=== PATIENT | female | born 1985 | race American Indian/Alaskan Native ===

== ENCOUNTER 2023-11-28 21:09 | Emergency (ER) | payer SELFPAY ==
[2023-11-28] MEDS ORDERED: Ondansetron 4 MG Tab.DIS PO ONE (21:10)
[2023-11-28] MEDS ORDERED: Sodium Chloride 0.9% 10 ML Syringe FLUSH PRN (21:55)
[2023-11-28 22:06] LABS: BASOPHILS ABSOLUTE AUTO 0.1 x10-3/uL (0.0-0.1); BASOPHILS PERCENT AUTO 1.2 % (0.2-1.5); BLOOD UREA NITROGEN,BUN 10 mg/dL (7-18); BUN/CREATININE RATIO 14.3 (9-20); CALCIUM 7.7 mg/dL (8.6-10.2); CARBON DIOXIDE,CO2 26 mmol/L (21-32); CHLORIDE,CL 104 mmol/L (100-110); CREATININE 0.7 mg/dL (0.55-1.02); EOSINOPHILS PERCENT AUTO 0.4 % (0.6-8.1); ESTIMATED GFR 115 mL/min (>60); GLUCOSE RANDOM 120 mg/dL (80-116); HEMOGLOBIN 12.4 g/dL (11.4-15.5); LYMPHOCYTES ABSOLUTE AUTO 2.4 x10-3/uL (1.0-4.4); LYMPHOCYTES PERCENT AUTO 35.3 % (18.4-52.1); MEAN CORPUSCULAR HEMOGLOBIN 28.9 pg (23.9-33.9); MEAN CORPUSCULAR HGB CONC 32.7 g/dL (31.9-34.8); MEAN CORPUSCULAR VOLUME 88.6 fL (76.7-100.5); MEAN PLATELET VOLUME 9.1 fL (7.1-12.4); MONOCYTES ABSOLUTE AUTO 0.4 x10-3/uL (0.3-1.0); MONOCYTES PERCENT AUTO 5.4 % (4.4-15.7); NEUTROPHILS PERCENT AUTO 57.7 % (30.8-76.2); PLATELET COUNT,PLT 331 x10(3)uL (151-488); POTASSIUM,K 3.7 mmol/L (3.5-5.3); RED BLOOD CELL COUNT 4.29 x10(6)uL (3.60-5.20); RED CELL DISTRIBUTION WIDTH 16.3 % (12.3-16.5); SODIUM,NA 142 mmol/L (135-145); WHITE BLOOD CELL COUNT,WBC 6.9 x10-3/uL (3.0-10.3)
[2023-11-28 22:12] LABS: A/G RATIO 0.8; ALANINE AMINOTRANSFERASE,ALT 23 U/L (12-36); ALBUMIN 3.6 g/dL (3.5-5.2); ALKALINE PHOSPHATASE 90 IU/L (56-112); ASPARTATE AMNIOTRANSFERASE,AST 38 IU/L (5-25); BILIRUBIN TOTAL 0.5 mg/dL (0.1-1.3); MAGNESIUM 1.5 mg/dL (1.8-2.5); PROTEIN TOTAL,TP 8.3 g/dL (6.0-8.0)
[2023-11-28] MEDS: Ondansetron 4 MG/2 ML SDV IVPUSH ONE (22:12)
[2023-11-28] MEDS: Sodium Chloride 0.9% 500 ML IV ONE (22:12)
[2023-11-28 22:13] LABS: INR 1.04 (1.00-1.24); PROTHROMBIN TIME 10.8 sec (9.0-11.1)
[2023-11-28 22:15] LABS: PTT,PARTIAL THROMBOPLSTIN TIME 24.6 SECONDS (24.4-33.2)
[2023-11-28 22:17] LABS: LIPASE 14 U/L (16-77)
[2023-11-28] MEDS: Pantoprazole 40 MG Vial IVPUSH ONE (22:18)
[2023-11-28 22:22] LABS: TROPONIN I < 4.0 pg/mL (4.0-60.3)
[2023-11-28] MEDS: Haloperidol Lactate 5 MG/ML SDV IV ONE (23:40)
[2023-11-29] MEDS: Magnesium Sulfate/Water 2 GM in Premix Bag 1 BAG IV ONE (02:15)
[2023-11-29 02:23] LABS: BILIRUBIN,URINE NEGATIVE (NEGATIVE); GLUCOSE,URINE NORMAL (NORMAL); KETONES,URINE 15 mg/dL (NEGATIVE); LEUKOCYTE ESTERASE,URINE NEGATIVE (NEGATIVE); NITRITE,URINE NEGATIVE (NEGATIVE); OCCULT BLOOD,URINE LARGE (NEGATIVE); PROTEIN,URINE TRACE mg/dL (NEGATIVE); UROBILINOGEN,URINE NORMAL (NEGATIVE)
[2023-11-29 02:24] LABS: AMPHETAMINES SCREEN, URINE NEGATIVE (NEGATIVE); BARBITURATE SCREEN,URINE NEGATIVE (NEGATIVE); BENZODIAZEPINES SCREEN,URINE NEGATIVE (NEGATIVE); BUPRENORPHINE SCREEN,URINE NEGATIVE (NEGATIVE); METHADONE SCREEN, URINE NEGATIVE (NEGATIVE); METHAMPHETAMINE SCREEN, URINE NEGATIVE (NEGATIVE); OXYCODONE SCREEN,URINE NEGATIVE (NEGATIVE); THC SCREEN,URINE POSITIVE (NEGATIVE)
[2023-11-29 02:25] LABS: APPEARANCE,URINE SLIGHTLY CLOUDY (CLEAR); BACTERIA,URINE MODERATE (NS); COLOR,URINE YELLOW (YELLOW); MUCUS,URINE MODERATE (NS); SQUAMOUS EPITHELIAL CELLS,UR FEW (NS,R,O); WBC,URINE 0-5 (0-5)
== END 2023-11-29 04:35 | disposition home or self-care (01) ==
LOC: FB.ED 21:09
DX: E86.0 Dehydration (principal); F10.120 Alcohol abuse with intoxication, uncomplicated; F12.10 Cannabis abuse, uncomplicated; E83.42 Hypomagnesemia; F17.200 Nicotine dependence, unspecified, uncomplicated; Z90.49 Acquired absence of other specified parts of digestive tract; Y90.9 Presence of alcohol in blood, level not specified
CPT/HCPCS: 36415; 80053; 80307; 81001; 82271; 83690; 83735; 84484; 85025; 85610; 85730; 93005; 96361; 96365; 96366; 96375; 99284; C9113; J1630; J2405; J3475; J7040; Q0162; 93010

== ENCOUNTER 2024-03-31 15:53 | Inpatient (IN) | payer MEDICAID ==
[2024-03-31 16:26] LABS: BASOPHILS PERCENT AUTO 0.5 % (0.2-1.5); EOSINOPHILS PERCENT AUTO 0.4 % (0.6-8.1); HEMATOCRIT 44.7 % (34.2-48.2); HEMOGLOBIN 15.5 g/dL (11.4-15.5); LYMPHOCYTES PERCENT AUTO 16.4 % (18.4-52.1); MEAN CORPUSCULAR HEMOGLOBIN 33.2 pg (23.9-33.9); MEAN CORPUSCULAR HGB CONC 34.6 g/dL (31.9-34.8); MEAN CORPUSCULAR VOLUME 95.9 fL (76.7-100.5); MEAN PLATELET VOLUME 9.3 fL (7.1-12.4); MONOCYTES ABSOLUTE AUTO 0.8 x10-3/uL (0.3-1.0); MONOCYTES PERCENT AUTO 12.4 % (4.4-15.7); NEUTROPHILS ABSOLUTE AUTO 4.5 x10-3/uL (1.5-6.3); NEUTROPHILS PERCENT AUTO 70.3 % (30.8-76.2); PLATELET COUNT,PLT 147 x10(3)uL (151-488); RED BLOOD CELL COUNT 4.66 x10(6)uL (3.60-5.20); RED CELL DISTRIBUTION WIDTH 15.1 % (12.3-16.5); WHITE BLOOD CELL COUNT,WBC 6.3 x10-3/uL (3.0-10.3)
[2024-03-31] MEDS: Sodium Chloride 0.9% 1,000 ML IV ONE (16:28)
[2024-03-31 16:29] LABS: BLOOD UREA NITROGEN,BUN 19 mg/dL (7-18); BUN/CREATININE RATIO 23.8 (9-20); CALCIUM 9.9 mg/dL (8.6-10.2); CARBON DIOXIDE,CO2 21 mmol/L (21-32); CHLORIDE,CL 94 mmol/L (100-110); CREATININE 0.8 mg/dL (0.55-1.02); ESTIMATED GFR 98 mL/min (>60); GLUCOSE RANDOM 148 mg/dL (80-116); POTASSIUM,K 3.2 mmol/L (3.5-5.3); SODIUM,NA 132 mmol/L (135-145)
[2024-03-31] MEDS: Ondansetron 4 MG/2 ML SDV IVPUSH ONE (16:30)
[2024-03-31 16:32] LABS: APPEARANCE,URINE CLOUDY (CLEAR); BACTERIA,URINE MODERATE (NS); BILIRUBIN,URINE SMALL (NEGATIVE); COLOR,URINE ORANGE (YELLOW); GLUCOSE,URINE NORMAL (NORMAL); KETONES,URINE 15 mg/dL (NEGATIVE); LEUKOCYTE ESTERASE,URINE MODERATE (NEGATIVE); MUCUS,URINE FEW (NS); NITRITE,URINE POSITIVE (NEGATIVE); OCCULT BLOOD,URINE LARGE (NEGATIVE); PROTEIN,URINE 500 mg/dL (NEGATIVE); RBC,URINE 20-30 (0-5); SQUAMOUS EPITHELIAL CELLS,UR FEW (NS,R,O); UROBILINOGEN,URINE 8 mg/dL (NEGATIVE)
[2024-03-31 16:35] LABS: ALANINE AMINOTRANSFERASE,ALT 77 U/L (12-36); ALBUMIN 4.2 g/dL (3.5-5.2); ALKALINE PHOSPHATASE 128 IU/L (56-112); ASPARTATE AMNIOTRANSFERASE,AST 93 IU/L (5-25); BILIRUBIN TOTAL 1.8 mg/dL (0.1-1.3); C-REACTIVE PROTEIN < 0.50 mg/dL (<0.50); LIPASE 400 U/L (16-77); MAGNESIUM 1.8 mg/dL (1.8-2.5); PROTEIN TOTAL,TP 8.6 g/dL (6.0-8.0)
[2024-03-31] MEDS ORDERED: Naloxone 0.4 MG/ML SDV IVPUSH PRN (16:50)
[2024-03-31] MEDS: HYDROmorphone 2 MG/ML SDV IVPUSH ONE (16:54)
[2024-03-31] MEDS: Iopamidol 755 Mg/ML 100 ML Bottle IV SCH (17:46)
[2024-03-31] MEDS ORDERED: Ondansetron 4 MG/2 ML SDV IV PRN (20:39)
[2024-03-31] MEDS ORDERED: LORazepam 2 MG/ML SDV IV PRN (20:39)
[2024-03-31] MEDS: Sodium Chloride 0.9% 1,000 ML IV SCH (21:36)
[2024-03-31] MEDS: Potassium Chloride 10 MEQ in Premix Bag 1 BAG IV SCH (21:37)
[2024-03-31] MEDS: Pantoprazole 40 MG Vial IVPUSH SCH (21:40)
[2024-03-31] MEDS: cefTRIAXone 2 GM Vial IVPUSH SCH (21:45)
[2024-03-31] MEDS: HYDROmorphone 2 MG/ML SDV IVPUSH PRN (21:51)
[2024-04-01] MEDS: Sodium Chloride 0.9% 10 ML Syringe FLUSH PRN (05:25)
[2024-04-01 06:25] LABS: BASOPHILS PERCENT AUTO 0.4 % (0.2-1.5); EOSINOPHILS ABSOLUTE AUTO 0.1 x10-3/uL (0.0-0.8); EOSINOPHILS PERCENT AUTO 1.4 % (0.6-8.1); HEMATOCRIT 35.3 % (34.2-48.2); LYMPHOCYTES ABSOLUTE AUTO 0.7 x10-3/uL (1.0-4.4); LYMPHOCYTES PERCENT AUTO 18.3 % (18.4-52.1); MEAN CORPUSCULAR HEMOGLOBIN 32.7 pg (23.9-33.9); MEAN CORPUSCULAR HGB CONC 33.9 g/dL (31.9-34.8); MEAN CORPUSCULAR VOLUME 96.2 fL (76.7-100.5); MEAN PLATELET VOLUME 9.7 fL (7.1-12.4); MONOCYTES ABSOLUTE AUTO 0.4 x10-3/uL (0.3-1.0); MONOCYTES PERCENT AUTO 9.8 % (4.4-15.7); NEUTROPHILS ABSOLUTE AUTO 2.6 x10-3/uL (1.5-6.3); NEUTROPHILS PERCENT AUTO 70.1 % (30.8-76.2); PLATELET COUNT,PLT 101 x10(3)uL (151-488); RED BLOOD CELL COUNT 3.66 x10(6)uL (3.60-5.20); WHITE BLOOD CELL COUNT,WBC 3.7 x10-3/uL (3.0-10.3)
[2024-04-01 06:28] LABS: BLOOD UREA NITROGEN,BUN 15 mg/dL (7-18); CALCIUM 8.1 mg/dL (8.6-10.2); CARBON DIOXIDE,CO2 22 mmol/L (21-32); CHLORIDE,CL 100 mmol/L (100-110); CREATININE 0.6 mg/dL (0.55-1.02); EST CRCL DRUG DOSING (CG) 102.52 mL/min; ESTIMATED GFR 119 mL/min (>60); GLUCOSE RANDOM 91 mg/dL (80-116); SODIUM,NA 135 mmol/L (135-145)
[2024-04-01] MEDS ORDERED: Nicotine 21 MG/24 Hr Patch TRDERM PRN (08:01)
[2024-04-01] MEDS: Acetaminophen/HYDROcodone 325-5 MG Tab PO PRN (08:35)
[2024-04-01] MEDS: Potassium Chloride 20 MEQ Tab.ER PO SCH (08:36)
[2024-04-02 06:40] LABS: BASOPHILS PERCENT AUTO 0.5 % (0.2-1.5); EOSINOPHILS PERCENT AUTO 1.8 % (0.6-8.1); HEMATOCRIT 35.1 % (34.2-48.2); LYMPHOCYTES ABSOLUTE AUTO 0.5 x10-3/uL (1.0-4.4); MEAN CORPUSCULAR HGB CONC 34.3 g/dL (31.9-34.8); MONOCYTES ABSOLUTE AUTO 0.2 x10-3/uL (0.3-1.0); MONOCYTES PERCENT AUTO 9.7 % (4.4-15.7); NEUTROPHILS ABSOLUTE AUTO 1.5 x10-3/uL (1.5-6.3); PLATELET COUNT,PLT 102 x10(3)uL (151-488); RED BLOOD CELL COUNT 3.65 x10(6)uL (3.60-5.20); RED CELL DISTRIBUTION WIDTH 14.8 % (12.3-16.5); WHITE BLOOD CELL COUNT,WBC 2.2 x10-3/uL (3.0-10.3)
[2024-04-02 06:48] LABS: A/G RATIO 0.9; ALANINE AMINOTRANSFERASE,ALT 101 U/L (12-36); ALBUMIN 2.7 g/dL (3.5-5.2); ALKALINE PHOSPHATASE 102 IU/L (56-112); ASPARTATE AMNIOTRANSFERASE,AST 149 IU/L (5-25); BILIRUBIN TOTAL 0.7 mg/dL (0.1-1.3); BLOOD UREA NITROGEN,BUN < 5 mg/dL (7-18); CALCIUM 7.7 mg/dL (8.6-10.2); CARBON DIOXIDE,CO2 23 mmol/L (21-32); CHLORIDE,CL 105 mmol/L (100-110); CREATININE 0.5 mg/dL (0.55-1.02); EST CRCL DRUG DOSING (CG) 123.02 mL/min; ESTIMATED GFR 125 mL/min (>60); GLUCOSE RANDOM 106 mg/dL (80-116); POTASSIUM,K 2.9 mmol/L (3.5-5.3); PROTEIN TOTAL,TP 5.8 g/dL (6.0-8.0); SODIUM,NA 138 mmol/L (135-145)
[2024-04-02] MEDS: Potassium Chloride 20 MEQ Tab.ER PO SCH ×2 (08:49→13:18)
[2024-04-02] MEDS: Sodium Chloride 0.9% 1,000 ML IV SCH (08:49)
[2024-04-03 06:15] LABS: BASOPHILS PERCENT AUTO 1.1 % (0.2-1.5); EOSINOPHILS PERCENT AUTO 1.7 % (0.6-8.1); HEMATOCRIT 35.7 % (34.2-48.2); HEMOGLOBIN 12.4 g/dL (11.4-15.5); LYMPHOCYTES ABSOLUTE AUTO 0.9 x10-3/uL (1.0-4.4); LYMPHOCYTES PERCENT AUTO 29.2 % (18.4-52.1); MEAN CORPUSCULAR HEMOGLOBIN 33.7 pg (23.9-33.9); MEAN CORPUSCULAR HGB CONC 34.9 g/dL (31.9-34.8); MEAN CORPUSCULAR VOLUME 96.8 fL (76.7-100.5); MEAN PLATELET VOLUME 8.7 fL (7.1-12.4); MONOCYTES ABSOLUTE AUTO 0.5 x10-3/uL (0.3-1.0); MONOCYTES PERCENT AUTO 15.5 % (4.4-15.7); NEUTROPHILS ABSOLUTE AUTO 1.6 x10-3/uL (1.5-6.3); NEUTROPHILS PERCENT AUTO 52.5 % (30.8-76.2); PLATELET COUNT,PLT 128 x10(3)uL (151-488); RED BLOOD CELL COUNT 3.68 x10(6)uL (3.60-5.20); RED CELL DISTRIBUTION WIDTH 15.2 % (12.3-16.5)
[2024-04-03 06:27] LABS: A/G RATIO 0.9; ALANINE AMINOTRANSFERASE,ALT 94 U/L (12-36); ALBUMIN 2.8 g/dL (3.5-5.2); ALKALINE PHOSPHATASE 101 IU/L (56-112); ASPARTATE AMNIOTRANSFERASE,AST 92 IU/L (5-25); BILIRUBIN TOTAL 0.5 mg/dL (0.1-1.3); CALCIUM 8.3 mg/dL (8.6-10.2); CARBON DIOXIDE,CO2 28 mmol/L (21-32); CHLORIDE,CL 104 mmol/L (100-110); CREATININE 0.5 mg/dL (0.55-1.02); EST CRCL DRUG DOSING (CG) 123.02 mL/min; ESTIMATED GFR 125 mL/min (>60); GLUCOSE RANDOM 113 mg/dL (80-116); POTASSIUM,K 3.6 mmol/L (3.5-5.3); PROTEIN TOTAL,TP 5.9 g/dL (6.0-8.0); SODIUM,NA 140 mmol/L (135-145)
[2024-04-03 06:30] LABS: BLOOD UREA NITROGEN,BUN < 5 mg/dL (7-18)
[2024-04-03 09:51] VITALS: BP 98/70; PULSE 94
== END 2024-04-03 09:30 | disposition home or self-care (01) | DRG 439 ==
LOC: FB.ED 15:53 → OBSVTOIN 20:23 → FB.MS 20:23
PROVIDERS: ADMIT Emergency Medicine; ATTEND Family Medicine
DX: K85.20 Alcohol induced acute pancreatitis without necrosis or infection (principal); N39.0 Urinary tract infection, site not specified; F41.9 Anxiety disorder, unspecified; F32.A Depression, unspecified; K70.9 Alcoholic liver disease, unspecified; E86.0 Dehydration; E87.6 Hypokalemia; R94.31 Abnormal electrocardiogram [ECG] [EKG]; F10.10 Alcohol abuse, uncomplicated; F17.210 Nicotine dependence, cigarettes, uncomplicated; D69.59 Other secondary thrombocytopenia; F12.10 Cannabis abuse, uncomplicated; B96.20 Unspecified Escherichia coli [E. coli] as the cause of diseases classified elsewhere; Z90.49 Acquired absence of other specified parts of digestive tract; Z98.51 Tubal ligation status
CPT/HCPCS: 36415; 74177; 80048; 80053; 80061; 80307; 81001; 81025; 83605; 83690; 83735; 84484; 85025; 86140; 87086; 87088; 87186; 93005; 93010; 94150; 96361; 96365; 96366; 96374; 96375; 96376; 99222; 99232; 99238; 99285; 99285-25; A9270-GY; G0378; J0696; J1171; J2405; J2470; J3480; J3490; J7030; Q9967

== ENCOUNTER 2024-12-19 13:47 | Emergency (ER) | payer MEDICAID ==
[2024-12-19] MEDS ORDERED: Sodium Chloride 0.9% 10 ML Syringe FLUSH PRN (13:51)
[2024-12-19 14:12] LABS: MEAN PLATELET VOLUME 9.6 fL (7.1-12.4); PLATELET COUNT,PLT 190 x10(3)uL (151-488); RED BLOOD CELL COUNT 4.37 x10(6)uL (3.60-5.20); RED CELL DISTRIBUTION WIDTH 15.5 % (12.3-16.5); WHITE BLOOD CELL COUNT,WBC 8.8 x10-3/uL (3.0-10.3)
[2024-12-19] MEDS: Prochlorperazine 10 MG/2 ML SDV IVPUSH ONE (14:13)
[2024-12-19 14:20] LABS: A/G RATIO 1.0; ALANINE AMINOTRANSFERASE,ALT 54 U/L (12-36); ASPARTATE AMNIOTRANSFERASE,AST 58 IU/L (5-25); BILIRUBIN TOTAL 2.5 mg/dL (0.1-1.3); BLOOD UREA NITROGEN,BUN 8 mg/dL (7-18); CARBON DIOXIDE,CO2 15 mmol/L (21-32); CHLORIDE,CL 90 mmol/L (100-110); CREATININE 0.9 mg/dL (0.55-1.02); ESTIMATED GFR 84 mL/min (>60); GLUCOSE RANDOM 162 mg/dL (80-116); POTASSIUM,K 3.4 mmol/L (3.5-5.3); PROTEIN TOTAL,TP 9.3 g/dL (6.0-8.0); SODIUM,NA 130 mmol/L (135-145)
[2024-12-19 14:23] LABS: LYMPHOCYTES PERCENT MAN 12 % (13-37); MONOCYTES PERCENT MAN 2 % (4-12); SEG NEUTROPHILS PERCENT MAN 86 % (46-82)
== END 2024-12-19 15:14 | disposition home or self-care (01) ==
LOC: FB.ED 13:47
DX: K70.9 Alcoholic liver disease, unspecified (principal); F17.200 Nicotine dependence, unspecified, uncomplicated; Z90.49 Acquired absence of other specified parts of digestive tract; Z79.899 Other long term (current) drug therapy
CPT/HCPCS: 80053; 80307; 83690; 85025; 96361; 96374; 99284; 99284-25; J0780; J7030